=== PATIENT | male | born 1985 | race Caucasian/White ===

== ENCOUNTER 2017-12-26 13:09 | Observation (INO) ==
--- NOTE | 2017-12-26 13:38 | Emergency Department Note ---
Disposition Clinical Impression: Laceration of right foot with complication Qualifiers: Encounter type: initial encounter Qualified Code(s): S91.311A - Laceration without foreign body, right foot, initial encounter Toe fracture, right Qualifiers: Encounter type: initial encounter Toe: great toe Fracture type: open Phalanx: distal Fracture alignment: displaced Qualified Code(s): S92.421B - Displaced fracture of distal phalanx of right great toe, initial encounter for open fracture Fracture, toe Qualifiers: Encounter type: initial encounter Toe: unspecified toe Fracture type: open Fracture alignment: displaced Laterality: right Qualified Code(s): S92.911B - Unspecified fracture of right toe(s), initial encounter for open fracture Disposition: Admitted As Inpatient Condition: Fair Lower Extremity Injury HPI - General Chief Complaint: ED Wound/Laceration Stated Complaint: right foot lac-complex Time Seen by Provider: 12/26/17 13:23 Source: patient, EMS Limitations: no limitations Nursing Notes Reviewed: Yes Vital Signs Reviewed: Yes - History of Present Illness HPI Narrative: 32-year-old male presented to the emergency department after cutting his right first and second toe with a pushing lawnmower. Patient states that he slipped and toes got caught up in it. States that he had his tetanus shot in July. Complaining of no other foot or ankle or leg pain, or pain anywhere else. Did not lose consciousness. - Related Data Home Medications Medication Instructions Recorded Confirmed No Known Home Drugs 12/26/17 12/26/17 Allergies Allergy/AdvReac Type Severity Reaction Status Date / Time codeine Allergy Rash Verified 12/26/17 14:41 All systems ED: reviewed and negative except as stated. Review of Systems: As Per HPI Constitutional: Denies: fever Respiratory: Denies: dyspnea Gastrointestinal: Denies: abdominal pain Musculoskeletal: Reports: other (Right toe pain). Denies: back pain Integumentary: Reports: other (Laceration of first and second right toe) Neurological: Denies: weakness, numbness, paresthesias Past Medical History - Past Medical History Medical history: Reports: no medical history Surgical history: Reports: non-contributory Psychiatric history: Reports: no psych history - Social History Smoking Status: Never smoker Smokeless Tobacco Status: No Alcohol use: Reports: none Drug use: Reports: none Physical Exam - General Limitations: no limitations General appearance: alert, in no apparent distress - Head Head exam: atraumatic, normocephalic - Eye Eye exam: Present: EOMI. Absent: scleral icterus, conjunctival injection - ENT ENT exam: normal oropharynx - Neck Neck exam: Present: trachea midline - Chest Chest inspection: Present: normal inspection, symmetric chest wall rise - Respiratory Respiratory exam: Present: normal lung sounds bilaterally. Absent: respiratory distress - Cardiovascular Cardiovascular exam: Present: regular rate, normal rhythm, normal heart sounds - Abdominal Exam Abdominal exam: Present: soft, Non-Tender. Absent: distention, guarding, rebound, rigidity - Extremities Exam Extremities exam: Present: other (Right first toe has circumferential laceration that is deep with nailbed involvement, no pulsatile blood, neurologically intact, right second metatarsal has circumferential laceration that is also neurologically intact, no pulsatile blood. Patient appears to have full ROM of the right toes.) - Neurological Exam Neurological exam: Present: alert, oriented X3 - Psychiatric Psychiatric exam: Present: normal affect, normal mood - Skin Skin exam: Present: warm, dry, intact Course Vital Signs Temperature 98.1 F 12/26/17 13:18 Pulse Rate 79 12/26/17 13:18 Respiratory Rate 20 12/26/17 13:18 Blood Pressure 152/114 12/26/17 13:18 O2 Sat by Pulse Oximetry 99 12/26/17 13:18 Temperature 98.1 F 12/26/17 13:30 Pulse Rate 92 12/26/17 15:46 Respiratory Rate 18 12/26/17 15:46 Blood Pressure 133/93 12/26/17 15:46 O2 Sat by Pulse Oximetry 96 12/26/17 15:46 Oxygen Delivery Oxygen Delivery Room Air Procedures - Laceration Laceration 1 Site: other (right first toe) Side (If applicable): right Description: linear Depth: [id number] Local Anesthetic: lidocaine 1% Amount of Anesthesia Used (mL): 9 Pre-repair: wound explored, irrigated extensively Skin layer closed with: other (Prolene) Size: 3-0 Number of sutures/meg: 2 Technique: simple, interrupted Laceration 2 Site: other (right second toe) Side (If applicable): right Description: linear Depth: [id number] Local Anesthetic: lidocaine 1% Amount of Anesthesia Used (mL): 6 Pre-repair: wound explored, irrigated extensively Skin layer closed with: other (Prolene) Size: 3-0 Number of sutures/meg: 2 Extremity Injury, Lower - MDM Narrative Medical decision making narrative: 32-year-old male presents emergency department after lacerating his first and second metatarsal by a lawnmower. Patient's right lower extremity is neurovascularly intact. We obtained foot x-ray that revealed comminuted fracture of the distal phalanges of the great toe and second toe. I spoke with Dr. North's nurse on the phone who spoke directly with Dr. North. Stated to irrigate, loosely approximate, give intravenous antimicrobials clindamycin and levaquin, and admitted to his service. Patient was given analgesia here in the emergency department. Both toes were irrigated extensively. Both lacerations were loosely approximated with 3-0 Prolene. Splint was placed. Family agreed with plan for admission. Right lower extremity was neurovascularly intact at time of admission. Foot X-Ray 12/26/17 13:26 IMPRESSION: Comminuted fractures of the distal phalanges of the great toe and 2nd toe. No radiopaque foreign body. D/ / Esau Faulkner MD / Esau Faulkner MD Interpreting Provider: Esau Faulkner MD
--- NOTE | 2017-12-26 14:26 | Emergency Department Note ---
Disposition Clinical Impression: Laceration of right foot with complication Qualifiers: Encounter type: initial encounter Qualified Code(s): S91.311A - Laceration without foreign body, right foot, initial encounter Disposition: Still a Patient Referrals: NONE,PCP [Primary Care Provider] - Forms: ED Satisfaction Letter General Adult HPI - General Chief complaint: ED Wound/Laceration Stated complaint: right foot lac-complex Time Seen by Provider: 12/26/17 13:23 Source: patient, EMS Limitations: no limitations - History of Present Illness Pain Scale: 8 - Related Data Previous Rx's Medication Instructions Recorded Tizanidine HCl 4 mg PO TID #15 tablet 06/05/16 methylPREDNISolone [Medrol] 4 mg PO DAILY #21 tablet 06/05/16 Erythromycin OPTH Oint 1 appl LEFT EYE Q6H 7 Days #1 tube 06/17/17 Erythromycin OPTH Oint 1 appl RIGHT EYE Q6H 5 Days tube 07/17/17 Allergies Allergy/AdvReac Type Severity Reaction Status Date / Time codeine Allergy Rash Verified 12/26/17 13:17 Past Medical History - Past Medical History Medical history: Reports: no medical history Surgical history: Reports: non-contributory Psychiatric history: Reports: no psych history - Social History Smoking Status: Never smoker Smokeless Tobacco Status: No Alcohol use: Reports: none Drug use: Reports: none Physical Exam - General Limitations: no limitations General appearance: alert, in no apparent distress Course - Reevaluation(s) Reevaluation #1: ATTESTATION NOTE I examined this patient and my medical decision-making was reviewed with the PHP MAGENTO DEVELOPER/PA/Advanced Practice Nurse/Resident Physician. I agree with the documented findings, disposition and treatment plan as described except to the extent set forth below. ED attending note: Patient seen with emergency medicine resident Dr. Germán Nava. We independently evaluated the patient. We independently had face-to -face contact with the patient. Please see a copy of his note for details of the history and physical, evaluation, management and disposition of this emergency Department patient. Briefly: Otherwise healthy 30-year-old male barefoot at foot got caught under push lawnmower sustaining complex laceration of the right first and second toe with the distal phalanx bone involvement as proven on x-ray. His tetanus is up- to-date. His wound will be copiously irrigated, he will get a dose of IV antibiotics. Patient will have and podiatry consultation. Disposition pending. Time: 14:24 Vital Signs Temperature 98.1 F 12/26/17 13:18 Pulse Rate 79 12/26/17 13:18 Respiratory Rate 20 12/26/17 13:18 Blood Pressure 152/114 12/26/17 13:18 O2 Sat by Pulse Oximetry 99 12/26/17 13:18 Temperature 98.1 F 12/26/17 13:30 Pulse Rate 79 12/26/17 13:30 Respiratory Rate 20 12/26/17 13:30 Blood Pressure 152/114 12/26/17 13:30 O2 Sat by Pulse Oximetry 99 12/26/17 13:30
[2017-12-26] MEDS ORDERED: Clindamycin 900 MG/50 ML 900 MG/50 ML IV.SOLN IVPB ONE (14:32)
[2017-12-26] MEDS ORDERED: Levofloxacin 750 MG/150 ML 750 MG/150 ML BAG IVPB ONE (14:33)
[2017-12-26] MEDS ORDERED: *HR* FentaNYL (PF) 100 MCG/2 ML VIAL IVP ONE (14:35)
[2017-12-26] MEDS ORDERED: *HR* OxyCODONE/APAP 5/325 TABLET PO ONE (14:35)
[2017-12-26] MEDS ORDERED: Lidocaine 1% 20 ML MDV ID ONE (14:37)
[2017-12-26] MEDS ORDERED: Ketorolac 15 MG/ML VIAL IVP PRN (19:01)
--- NOTE | 2017-12-26 20:30 | Internal Medicine Consult Note ---
Date of Encounter: 12/26/17 Time of Encounter: 20:27 - Assessment and plan (1) Laceration of right foot with complication Current Visit: Yes Status: Acute Assessment and plan: Status post trauma. X-ray with comminuted fracture of distal phalanx of great toe and second toe. Plan to take patient to operating room tomorrow morning. Keep patient nothing by mouth after midnight, gentle hydration IV fluid normal saline 75 mL per hour, basic lab tests CBC, BMP, PT INR. Preop antibiotic was started by primary team. Continue pain management. Qualifiers: Encounter type: initial encounter Qualified Code(s): S91.311A - Laceration without foreign body, right foot, initial encounter (2) DVT prophylaxis Current Visit: Yes Status: Acute Assessment and plan: SCDs - Time Spent With Patient Total time spent is greater than 50% in coordination of care (as documented) at patient's floor/unit and/or counseling patient: 25 - 35 minutes Internal Medicine - CN: HPI - Data of Consult Consult date: 12/26/17 Requesting Physician: Ascencion North, - Consult Narrative Reason for consult: Medical management History of present illness: Mr. Mead is a 32 year old male patient with no past medical history got admitted under Dr. North school office assistant's service for further management of comminuted fracture of the distal phalanges of great toe and second toe on right foot. There is plan to take patient or tomorrow morning therefore hospitalist Diego consulted for further evaluation and management medically. Patient denies fever, chills, nausea vomiting, headache, dizziness, chest pain , cough, shortness of breath, abdominal pain , urinary or bowel complaint. Foot pain is better controlled after starting pain medicine by primary team. , Past Med Surg Social Fam HX - Past Medical History Medical history: no medical history Psychiatric history: no psych history - Past Surgical History Surgical History: non-contributory - Social History Smoking Status: Never smoker Smokeless Tobacco Status: No Alcohol use: none Drug use: none - Family History Mother Living Status: Hx Family Cancer: Yes (lung) Internal Medicine - CN: Meds No Known Home Drugs 12/26/17 [History] 3 Allergy/AdvReac Type Severity Reaction Status Date / Time codeine Allergy Rash Verified 12/26/17 14:41 Internal Medicine - CN: Exam - Constitutional Vitals: Temp Pulse Resp BP Pulse Ox 98.0 F 80 14 128/85 98 12/26/17 18:47 12/26/17 18:47 12/26/17 18:47 12/26/17 18:47 12/26/17 18:47 Exam: General appearance: No acute distress, A&O X 3 Head exam: Atraumatic Eye exam: EOMI, PERRLA ENT exam: Moist oral mucosa Neck nontender, supple Respiratory exam: Clear to auscultation bilaterally Cardiovascular exam: Regular rate and rhythm, no systolic murmur Abdominal exam: Soft, nontender, nondistended, positive bowel sounds Extremities exam: Right great and second toe -Bandage and splint was placed. Neurological intact. Dorsal pedis artery palpable. Full range of motion of the toes. Neurological exam: Alert, awake, oriented 3, CN II-XII intact, no focal deficits. No facial droop. Normal speech. Consult Discharge Plan - Plan Referrals: NONE,PCP [Primary Care Provider] -
[2017-12-26] MEDS ORDERED: 0.9 % Sodium Chloride 1,000 ML IVC SCH (20:45)
[2017-12-26 21:21] LABS: Basophils % 0.4 %; Eosinophils # 0.1 K/mcL (0.0-0.6); Eosinophils % 0.7 %; Hematocrit 42.2 % (37.5-50.1); Hemoglobin 14.1 g/dL (12.9-16.9); Immature Granulocytes % 0.1 % (0-4); Lymphocytes # 2.2 K/mcL (0.6-4.6); Lymphocytes % 29.8 %; Mean Corpuscular HGB Conc 33.4 g/dL (31.6-35.5); Mean Corpuscular Hemoglobin 30.2 pg (28.0-33.3); Mean Corpuscular Volume 90.4 fL (83.0-100.0); Mean Platelet Volume 10.3 fL (9.4-12.4); Monocytes # 0.7 K/mcL (0.0-1.3); Monocytes % 9.3 %; Neutrophils # 4.5 K/mcL (1.6-8.9); Platelet Count 223 K/mcL (140-400); Red Blood Count 4.67 M/mcL (4.19-5.50); Red Cell Distribution Width 12.4 % (11.5-14.5); Segmented Neutrophils % 59.7 %
[2017-12-26 21:28] LABS: INR 1.1; Prothrombin Time 12.6 Seconds (9.4-12.1)
[2017-12-26 21:31] LABS: Activated Partial Thrombo Time 31.9 Seconds (26.0-36.0)
[2017-12-26 21:38] LABS: Alanine Aminotransferase 35 Units/L (7-52); Albumin 4.2 g/dL (3.5-5.7); Albumin/Globulin Ratio 1.6 (1.1-2.2); Alkaline Phosphatase 67 Units/L (34-104); Aspartate Amino Transferase 25 Units/L (13-39); BUN/Creatinine Ratio 19 (6-26); Bilirubin,Total 0.5 mg/dL (0.3-1.0); Blood Urea Nitrogen 20 mg/dL (6-20); Calcium 9.2 mg/dL (8.6-10.3); Carbon Dioxide 27 mEq/L (23-29); Chloride 104 mEq/L (98-107); Globulin 2.6 g/dL (2.4-3.5); Glucose 102 mg/dL (70-105); Osmolality,Calculated 291 (280-300); Potassium 3.8 mEq/L (3.5-5.1); Sodium 139 mEq/L (136-145); Total Protein 6.8 g/dL (6.4-8.9); eGFR For African Americans > 60 (> 60); eGFR For Non-African Americans > 60 (> 60)
[2017-12-26] MEDS: *HR* OxyCODONE/APAP 5/325 TABLET PO PRN (23:37)
[2017-12-26] MEDS: Piperacillin/Tazobactam 3.375 GM in 0.9 % Sodium Chloride Mini Bag 100 ML IVPB SCH (23:37)
[2017-12-27] MEDS: *HR* OxyCODONE/APAP 5/325 TABLET PO PRN (07:50)
[2017-12-27] MEDS: Piperacillin/Tazobactam 3.375 GM in 0.9 % Sodium Chloride Mini Bag 100 ML IVPB SCH (07:51)
--- NOTE | 2017-12-27 09:21 | Podiatry History & Physical ---
History of Present Illness Chief complaint: Laceration right foot toes #1 #2 HPI: Mr. Mead is a 32 year old male sustained a laceration over the fracture of toe #1 and 2 right foot for lawnmower accident last 24 hours. Patient received appropriate tetanus vaccination/toxoid/over the last 10 years. Patient did not injure any other portion of his foot. He was admitted last night for pain control intravenous antibiotics preparation for surgical intervention today. He is otherwise healthy. He has not experienced any chest pain nausea vomiting fever chills. All Systems Reviewed: The remainder of the systems were reviewed and are negative. Patient is not exper recent chest pain nausea vomiting fever chills, nor any bowel or bladder dysfunction Past Med Surg Social Fam HX - Past Medical History Attestation: Yes The following information was validated with the patient. 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) Current living situation: Home - Independent Activity Level: Independent ambulation Recent Out of Country Travel Within the Last 8 Weeks: No Exposure or Possible Exposure to Illness During Travel: No - Family History Mother Living Status: Hx Family Cancer: Yes (lung) Medications and Allergies No Known Home Drugs 12/26/17 [History] 3 Allergy/AdvReac Type Severity Reaction Status Date / Time codeine Allergy Rash Verified 12/27/17 09:22 Physical Exam - Constitutional Vitals: Temp Pulse Resp BP Pulse Ox 98.0 F 63 18 123/83 98 12/27/17 06:35 12/27/17 06:35 12/27/17 06:35 12/27/17 06:35 12/27/17 06:35 General appearance: average body habitus - Head Head exam: Present: atraumatic - Eye Pupils: Present: PERRL - Cardiovascular Cardiovascular exam: Present: RRR - Extremities Exam Extremities exam: Present: full ROM, pedal edema - Expanded Lower Extremities Exam Foot/Toe exam: Present: laceration, nail avulsion (Laceration of toe #1 #2 right foot open fracture) Neuro vascular tendon exam: Present: no vascular compromise Gait: Present: not tested/not observed - Neurological Exam Neurological exam: Present: oriented X3, strengths equal and symetr throughout - Psychiatric Psychiatric exam: Present: normal mood - Vascular Lower Extremity Vascular: no vascular compromise - Ankle & Foot Appearance ankle: normal Results - Labs Result Diagrams: 12/26/17 21:06 12/26/17 21:06 Labs: Abnormal lab results PT 12.6 Seconds (9.4-12.1) H 12/26/17 21:06 H & H 12/26/17 Range/Units 21:06 Hgb 14.1 (12.9-16.9) g/dL Hct 42.2 (37.5-50.1) % All other labs normal. - Diagnostic results Ankle/Foot x-ray: image reviewed Assessment and Plan (1) Open fracture of great toe of right foot Current visit: Yes Status: Acute Assessment: #1 open fracture laceration right great toe and #2 toe right foot #2 no other comorbidities noted Plan: #1: Debridement and repair of open fracture and laceration of toe #1 #2 #2 we discussed risks versus the benefits as well as alternatives to open repair of laceration and fracture. Those risks include but not limited to infection bleeding and pain. Loss of toe toes. Bone infection. Loss of foot or leg or life. We discussed types of anesthetic can be employed. Discussed had ample opportunity to ask questions about planned procedure. No guarantees or assurances were made to the outcome of the procedure. Patient voices comprehension. All questions are answered to his satisfaction. We will proceed expectantly. Qualifiers: Encounter type: initial encounter Phalanx: distal Fracture alignment: displaced Qualified Code(s): S92.421B - Displaced fracture of distal phalanx of right great toe, initial encounter for open fracture (2) Laceration of right foot with complication Current visit: Yes Status: Acute Qualifiers: Encounter type: initial encounter Qualified Code(s): S91.311A - Laceration without foreign body, right foot, initial encounter - VTE Documentation of Mechanical Device: Intermittent pneumatic compression device
--- NOTE | 2017-12-27 14:42 | Internal Med Progress Note ---
Date of Encounter: 12/27/17 Time of Encounter: 12:00 - Assessment and plan (1) Laceration of right foot with complication Current Visit: Yes Status: Acute Assessment and plan: Right foot laceration with XR showing fracture of distal phalynx of great toe and second toe Plan for OR today by Podiatry. NPO for procedure with gentle IVF hydration. Basic bloodwork and vitals reviewed. No significant abnormalities. No notable/significant past medical history. Pre-op Abx placed per primary team. Will sign off at this time, no intervention from medical stand point. Please re-consult of needed. Qualifiers: Encounter type: initial encounter Qualified Code(s): S91.311A - Laceration without foreign body, right foot, initial encounter - Time Spent With Patient Total time spent is greater than 50% in coordination of care (as documented) at patient's floor/unit and/or counseling patient: - Subjective Interval history: Seen in bed with bandage over lacerated toes. Denies any signficant discomfort or other complaints. - Constitutional Vitals: Temp Pulse Resp BP Pulse Ox 97.6 F 82 18 117/78 96 12/27/17 11:09 12/27/17 11:09 12/27/17 11:09 12/27/17 11:09 12/27/17 11:09 Exam: General: Alert and oriented Skin: Normal color, no rash, no lesions. HEENT: EOMI, pupils equal, round and reactive. Cardiovascular: Regular rate, regular rythm. No murmurs appreciated. Lungs:Normal breath sounds, no wheezes or crackles. Abdomen:Soft, non-tender, no rigidity. Extremities: Right great and second toe bandaged and splint. Pulse palpable. Neurological:Normal cognition, no weakness, no numbness. Rest of the physical exam is non contributory Internal Medicine: Result - Labs CBC & Chem 7: 12/26/17 21:06 12/26/17 21:06 Labs: Short CBC 12/26/17 Range/Units 21:06 WBC 7.5 (4.3-11.1) K/mcL Hgb 14.1 (12.9-16.9) g/dL Hct 42.2 (37.5-50.1) % Plt Count 223 (140-400) K/mcL Neutrophils # 4.5 (1.6-8.9) K/mcL BMP 12/26/17 21:06 Sodium 139 Potassium 3.8 Chloride 104 Carbon Dioxide 27 BUN 20 Creatinine 1.05 Glucose 102 Calcium 9.2 Liver Function 12/26/17 Range/Units 21:06 Total Bilirubin 0.5 (0.3-1.0) mg/dL AST 25 (13-39) Units/L ALT 35 (7-52) Units/L Alkaline Phosphatase 67 (34-104) Units/L Albumin 4.2 (3.5-5.7) g/dL - ABG Interpretation ABG results: PT/INR, D-dimer PT 12.6 Seconds (9.4-12.1) H 12/26/17 21:06 - VTE Documentation of Mechanical Device: Intermittent pneumatic compression device Consult Discharge Plan - Plan Referrals: NONE,PCP [Primary Care Provider] -
--- NOTE | 2017-12-27 15:59 | Anesthesia Evaluation PreOp ---
Date of Encounter: 12/27/17 Time of Encounter: 16:00 - Past History Planned Operation: Debridement Left Foot Fracture Cardiac History: Denies any Significant Hx Pulmonary History: Denies Any Significant HX CLINICAL ACCOUNT EXECUTIVE History: Denies Any Significant HX Other Medical History: Denies Any Significant HX Anesthesia History: No Prior Anesthetic Complications Alcohol Use: none Drug use: none Medications and Allergies No Known Home Drugs 12/26/17 [History] 3 Allergy/AdvReac Type Severity Reaction Status Date / Time codeine Allergy Rash Verified 12/27/17 09:22 - Meds/Allergy Pre-op Review Medications Reviewed: Yes Allergies Reviewed: Yes Beta Blockers on Current Med List: No Anesthesia Results - Labs 12/26/17 21:06 12/26/17 21:06 Anesthesia Exam O2 Sat O2 Sat by Pulse Oximetry 97 O2 Sat by Pulse Oximetry 96 O2 Sat by Pulse Oximetry 98 O2 Sat by Pulse Oximetry 99 O2 Sat by Pulse Oximetry 98 O2 Sat by Pulse Oximetry 98 O2 Sat by Pulse Oximetry 97 O2 Sat by Pulse Oximetry 97 Vital Signs Temp Pulse Resp BP Pulse Ox 98.1 F 79 20 152/114 99 12/26/17 13:18 12/26/17 13:18 12/26/17 13:18 12/26/17 13:18 12/26/17 13:18 Height: 6'0 Weight: 254 lbs NPO (# of Hours): MN Pain Scale: 0 - HEENT Pupil (Motor): Pupils equal, EOMI Mallampati: II Teeth: Normal Oral Opening: Greater than 3 - CLINICAL ACCOUNT EXECUTIVE LOC: Oriented CLINICAL ACCOUNT EXECUTIVE Motor: Normal RUE, Normal LUE, Normal RLE, Normal LLE, Normal Face CLINICAL ACCOUNT EXECUTIVE Sensory: Normal: RUE, LUE, RLE, LLE, Face - Cardiac Rhythm: Regular Murmur: None JVD: No Carotid Bruit: No - Pulmonary Breath Sounds: bilateral Clear Respiratory Effort: Symmetrical Anesthesia Assess/Plan ASA Score: 1 Modified Dameon Scale for Level of Consciousness: Cooperative, oriented, and tranquil Anesthetic Plan: MAC Monitoring Plan: Standard Monitors Recovery Plan: Other (Discussed MAC, possible GA, agrees to proceed)
[2017-12-27] MEDS ORDERED: Acetaminophen IV 1,000 MG/100 ML INFUS..BTL ONE (16:01)
[2017-12-27] MEDS ORDERED: *HR* FentaNYL (PF) 100 MCG/2 ML VIAL ONE (16:11)
[2017-12-27] MEDS ORDERED: Propofol 500 MG/50 ML INFUS..BTL ONE ×2 (16:13→16:35)
[2017-12-27] MEDS ORDERED: Lidocaine -MPF 2% 2 ML VIAL ONE (16:13)
[2017-12-27] MEDS ORDERED: Bupivacaine/Clonidine Syringe 1 EACH SYRINGE ONE (16:17)
--- NOTE | 2017-12-27 17:21 | Anesthesia Evaluation Post Op ---
Date of Encounter: 12/27/17 Time of Encounter: 17:20 - Vital Signs Vital Signs: Vital Signs/O2 Sat/Glucose, Most Current Temp Pulse Resp BP Pulse Ox 12/27/17 14:45 97.9 F 72 18 138/84 97 - Lungs Lungs: Clear Ascult./Percussion - Airway Airway: Non-obstructed - Cardiovascular Regular Rate - Mental Status Mental Status: Alert & Oriented, Answers Appropriately - Pain Pain Scale: 0 - Nausea Vomiting Nausea Vomiting: Not Present - Hydration Hydration: Tolerates oral liquids - Discharge PostOp Status: Transfer Patient to floor
--- NOTE | 2017-12-27 17:22 | Orthopedic Operative Note ---
Date of procedure: 12/27/17 Pre-op diagnosis: Open fracture toe #1 #2 right Post-op diagnosis: same Procedure: 12/27/17 17:20 #1 debridement of open fracture toe #1 #2 right #2 Reduction and placement of external K wire toe #2 right #3 Reduction with manipulation toe #1 right Implants: #1: Smooth 045 K wire Complications: None Anesthesia: MAC, local Local Anesthetics: 0.25% Sensorcaine HCL SubQ (cc) Surgeon: Ascencion North Was there an environmental assistant present: No Estimated blood loss (cc): 5 Tourniquet Time (Minutes): 20 Specimen: None Condition: stable Disposition: floor Procedure in Detail: 12/27/17 17:22 Detail summary of procedure: Patient was brought to surgical suite. Sign in procedure performed. Patient transferred the surgical table and positioned properly safely securely. Right foot elevated on foam block. Anesthetic timeout taken. Right foot prepped with alcohol 3 times. Digital blocks carried out without difficulty or complication. Right foot prepped and draped in usual sterile manner. Surgical timeout taken. . Fluoroscopy employed. Reduction of distal phalanx fracture pre-manipulation achieved appropriate alignment and position. It was then decided to debride and repair the laceration/open fracture. That point was debrided with a pickup curet scissors down to the distal phalanx. All nonviable tissue was excised. Laceration was repaired with 3-0 Prolene. Using fluoroscopy the distal phalangeal fracture was transverse in nature was repositioned. Using #15 scalpel blade a percutaneous incision was made the distal aspect the toe. No 45 smooth K wire was introduced into the distal phalanx realigning the base of transverse fracture of the base of distal phalanx it was then driven into the middle phalanx for stabilization. The patient was then bent and cut appropriate angles. Laceration/open fracture was then debrided using a curet pickup and scissor. The soft tissue was inspected and irrigated thoroughly again closure of the skin some Angelica using 3-0 Prolene. Tourniquet was released and immediate hyperemic response was noted. No complications.Blood loss less than 5 mL. Wound was dressed with Adaptic 4 x 4's Kerlix and compressive dressing. The K wire was protected with Steri- Strips. Tolerated procedure well and sent to holding room in good condition with vital signs stable.
[2017-12-27] MEDS ORDERED: 0.9 % Sodium Chloride 1,000 ML IVC SCH (18:07)
[2017-12-27] MEDS ORDERED: Ketorolac 15 MG/ML VIAL IVP PRN (18:07)
[2017-12-28] MEDS: Piperacillin/Tazobactam 3.375 GM in 0.9 % Sodium Chloride Mini Bag 100 ML IVPB SCH ×2 (00:04→09:10)
[2017-12-28] MEDS: *HR* OxyCODONE/APAP 5/325 TABLET PO PRN ×3 (00:06→15:07)
--- NOTE | 2017-12-28 10:02 | Electrocardiograph Report ---
[address] [address] Test Date: 2017-12-27 Pat Name: Diego Mead Department: 114 Room: [facility] Gender: M Credit Verifier: [id number] : 1985 Requested By: [facility] Order Number: [id number] Reading MD: Dagoberto Frye Measurements Intervals [place] Rate: 66 P: 22 UT: 206 QRS: -4 QRSD: 100 T: 11 QT: 397 QTc: 411 Interpretive Statements SINUS RHYTHM Electronically Signed On 12-28-2017 10:00:14 EDT by Dagoberto Frye
[2017-12-28 11:23] VITALS: BP 126/85
--- NOTE | 2017-12-28 12:07 | Discharge Summary ---
Date of Encounter: 12/28/17 Time of Encounter: 12:00 - NOTES TO OUTPATIENT PROVIDER Notes to Outpatient Provider: Will need follow up with in clinic or YAJAIRA Rutledge early next week. Follow up with PCP - Discharge Diagnosis (1) Open fracture of great toe of right foot Status: Acute Comments: s/p surgical intervention of open fracture of toe Patient in stable condition to be discharged today Leave dressing intact until seen in clinic next week Patient will need appointment with or YAJAIRA rutledge next week for follow up Keflex PO ordered 500mg PO BID- patient instructed to take all of medication Percocet PO Q4-6H PRN for pain 5 days, OARRS reviewed, no patient found, never prescribed narcotics Patient instructed to use crutches for ambulation, minimal weight bearing to heel, pivots only ICE and elevate PRN for pain Ibuprofen for breakthrough pain Will need post operative shoe at bedside prior to discharge. Call with any trauma, fevers, chills, n/v or flu like symptoms. Qualifiers: Encounter type: initial encounter Phalanx: distal Fracture alignment: displaced Qualified Code(s): S92.421B - Displaced fracture of distal phalanx of right great toe, initial encounter for open fracture - Impressions ITS Impressions Fluoroscopy 12/27/17 16:40 IMPRESSION: Intraprocedural fluoroscopic spot images as above. See separate procedure report for more information. D/ / 12/27/2017 17:21:59 Emanuel Aggarwal MD / marlin Interpreting Provider: Emanuel Aggarwal MD Foot X-Ray 12/27/17 16:40 IMPRESSION: Intraprocedural fluoroscopic spot images as above. See separate procedure report for more information. D/ / 12/27/2017 17:21:59 Emanuel Aggarwal MD / marlin Interpreting Provider: Emanuel Aggarwal MD Foot X-Ray 12/27/17 18:07 IMPRESSION: Intraprocedural fluoroscopic spot images as above. See separate procedure report for more information. D/ / 12/27/2017 17:21:59 Emanuel Aggarwal MD / [email or web address] Interpreting Provider: Emanuel Aggarwal MD - Hospital Course Hospital course: Mr. Mead is a 32 year old male - Time Spent with Patient Total time spent providing and/or coordinating discharge services: Greater than 30 minutes Specific discharge activities: weight bearing to heel only, limited weight bearing. Follow up in podiatry office 1 week after discharge - Discharge Medications Prescriptions: Cephalexin [Keflex] 500 mg PO BID 10 Days #20 capsule Oxycodone HCl/Acetaminophen [Percocet 5-325 mg Tablet] 1 each PO Q4-6H PRN 5 Days #20 tablet PRN Reason: Pain Home Medications: Cephalexin [Keflex] 500 mg PO BID 10 Days #20 capsule 12/28/17 [Rx] Oxycodone HCl/Acetaminophen [Percocet 5-325 mg Tablet] 1 each PO Q4-6H PRN 5 Days #20 tablet 12/28/17 [Rx] Allergies/Adverse Reactions: 3 Allergy/AdvReac Type Severity Reaction Status Date / Time codeine Allergy Rash Verified 12/27/17 09:22 Date of admission: 12/26/17 15:11 Primary care physician: PCP NONE Discharging clinician: Cady Vuong Anticipated date of discharge: 12/28/17 - Patient Status Disposition: Home, Self-Care Condition: Good Functional capacity at discharge: independent ambulation Overall status at discharge: patient is progressing back to baseline - Discharge Instructions Follow Up With: NONE,PCP [Primary Care Provider] - Additional Instructions: weight bearing to heel only, limited weight bearing Follow up in podiatry office 1 week after discharge - Diet and Activity Activity: other (limited protective weight bearing to heel only for transfers, crutches otherwise to limit weight to foot.Elevate whenever possible) Diet: advance to your usual diet - VTE Documentation of Mechanical Device: Intermittent pneumatic compression device
== END 2017-12-28 15:16 | disposition home or self-care (01) ==
LOC: EMEROO 13:09 → 3NENU 15:11 → INTOOBSV 15:11 → SUATTDRO 15:11 → 3NENU 16:15
PROVIDERS: ADMIT Podiatrist Foot Surgery; ATTEND Podiatrist Foot Surgery